=== PATIENT | male | born 1975 | race Caucasian/White ===

== ENCOUNTER 2018-01-10 14:01 | Emergency (ER) | payer OTHER ==
[2018-01-10 15:15] VITALS: BP 122/79
--- NOTE | 2018-01-10 15:32 | UC ---
UC General HPI - HPI Summary HPI Summary: abscess in L armpit drained 2 days ago. area not feeling better and is possible worse. +MRSA on culture. No hx DM. - History of Current Complaint Chief Complaint: UCSkin Stated Complaint: RECHECK-SKIN COMP Time Seen by Provider: 01/10/18 15:26 Hx Obtained From: Patient Pain Intensity: 6 Alleviating: nothing - Allergy/Home Medications Allergies/Adverse Reactions: Allergies Allergy/AdvReac Type Severity Reaction Status Date / Time Penicillins Allergy Hives Verified 01/10/18 15:06 PMH/Surg Hx/FS Hx/Imm Hx Cardiovascular History: Atrial Fibrillation - ablation but still on medications for now - Surgical History Surgical History: Yes Surgery Procedure, Year, and Place: jaw fxs, cardaic ablasion - Family History Known Family History: Positive: Hypertension, Non-Contributory - Social History Lives: With Family Alcohol Use: None Substance Use Type: None Smoking Status (MU): Current Every Day Smoker Type: Smokeless Tobacco Amount Used/How Often: 1 can/2 days Length of Time of Smoking/Using Tobacco: since age 28 - Immunization History Vaccination Up to Date: Yes Review of Systems All Other Systems Reviewed And Are Negative: Yes Constitutional: Positive: Negative Skin: Positive: Negative Eyes: Positive: Negative ENT: Positive: Negative Respiratory: Positive: Negative Cardiovascular: Positive: Negative Gastrointestinal: Positive: Negative Genitourinary: Positive: Negative Motor: Positive: Negative Neurovascular: Positive: Negative Musculoskeletal: Positive: Negative Neurological: Positive: Negative Psychological: Positive: Negative Physical Exam Triage Information Reviewed: Yes Appearance: Well-Appearing Vital Signs: Initial Vital Signs Temp 97.9 F 01/10/18 15:07 Pulse 81 01/10/18 15:07 Resp 16 01/10/18 15:07 BP 122/79 01/10/18 15:07 Pulse Ox 98 01/10/18 15:07 Vital Signs Reviewed: Yes Eyes: Positive: Conjunctiva Clear ENT: Positive: Normal ENT inspection Neck: Positive: Supple, Nontender, No Lymphadenopathy Respiratory: Positive: Lungs clear, Normal breath sounds Cardiovascular: Positive: RRR, No Murmur Abdomen Description: Positive: Nontender, No Organomegaly, Soft Bowel Sounds: Positive: Present Musculoskeletal: Positive: ROM Intact Neurological: Positive: Alert Psychological: Positive: Age Appropriate Behavior Skin Exam: Normal, Other - L axilla red. Prior area of I&D open, pink and not draining. Central with tiny opening and is draining puss. 2 more superior spots are fluctuant and yellow c/w abscesses. no streaking. satellite red spots. Course/Dx - Course Course Of Treatment: Procedure: time out. L axilla prep betadine. local with 1 % Lidocaine in 3 spots of concern. Tip #11 blade used to make superficial stabs to each site. small amounts of puss from 3 sites. irrigated with sterile NaCl to all 4 ( prior site included) sites. 1/4" gauze placed in all 4 sites. sites covered with Bacitracin and single bulky gauze sterile dressing. only scant bleeding. sterile technique used. pt tolerated well. on Bactrim and will continue, culture is MRSA + - Diagnoses Provider Diagnosis: Abscess of axilla Discharge - Sign-Out/Discharge Documenting (check all that apply): Patient Departure All imaging exams completed and their final reports reviewed: No Studies - Discharge Plan Condition: Stable Disposition: HOME Patient Education Materials: Abscess Follow-up (ED) Referrals: Mehrdad Flynn [Medical Doctor] - 2 Days Additional Instructions: CONTINUE THE BACTRIM DIRECTED. - Billing Disposition and Condition Condition: STABLE Disposition: Home - Attestation Statements Provider Attestation: I was available for consult. This patient was seen by the HIEU. The patient was not presented to, seen by, or examined by me. -Luigi
[2018-01-10] MEDS ORDERED: Lidocaine 1%* 5 ML VIAL INJ ONE (15:38)
== END 2018-01-10 16:20 | disposition home or self-care (01) ==
LOC: UCCORT 14:01
DX: L02.412 Cutaneous abscess of left axilla (principal); Z88.0 Allergy status to penicillin; I48.91 Unspecified atrial fibrillation; Z79.01 Long term (current) use of anticoagulants; F17.210 Nicotine dependence, cigarettes, uncomplicated; A49.02 Methicillin resistant Staphylococcus aureus infection, unspecified site
CPT/HCPCS: 10061; 99211; G0463

== ENCOUNTER 2018-02-03 13:07 | Emergency (ER) | payer OTHER ==
[2018-02-03 14:06] VITALS: BP 125/75
--- NOTE | 2018-02-03 14:17 | UC ---
General HPI - HPI Summary HPI Summary: "I think I have a groin pull". 2 days ago, while demonstrating a squat type move at his gym, pt got a sudden pain in his R groin. he has a hx of the same. at times the pain gets so bad it shoots into his leg. pt denies any testicular pain or swelling. self tx with tylenol. no relief. unable to take nsaids. - History of Current Complaint Chief Complaint: UCLowerExtremity Stated Complaint: GROIN PAIN Time Seen by Provider: 02/03/18 14:09 Hx Obtained From: Patient Onset/Duration: Sudden Onset Pain Intensity: 8 Aggravating: any type of leg movement Associated Signs & Symptoms: Positive: Other - no joint pain. Negative: Abdominal Pain - Allergy/Home Medications Allergies/Adverse Reactions: Allergies Allergy/AdvReac Type Severity Reaction Status Date / Time Penicillins Allergy Hives Verified 02/03/18 14:01 PMH/Surg Hx/FS Hx/Imm Hx - Additional Past Medical History Additional PMH: a-fib with ablation - Surgical History Surgical History: Yes Surgery Procedure, Year, and Place: jaw fxs, cardaic ablasion - Family History Known Family History: Positive: Hypertension, Non-Contributory - Social History Occupation: Employed Full-time Lives: With Family Alcohol Use: None Substance Use Type: None Smoking Status (MU): Current Every Day Smoker Type: Smokeless Tobacco Amount Used/How Often: 1 can/2 days Length of Time of Smoking/Using Tobacco: since age 28 - Immunization History Vaccination Up to Date: Yes Review of Systems All Other Systems Reviewed And Are Negative: Yes Constitutional: Positive: Negative Skin: Positive: Negative Eyes: Positive: Negative ENT: Positive: Negative Respiratory: Positive: Negative Cardiovascular: Positive: Negative Gastrointestinal: Positive: Negative Genitourinary: Positive: Negative Motor: Positive: Negative Neurovascular: Positive: Negative Musculoskeletal: Positive: Other: - R katrin pain Neurological: Positive: Negative Psychological: Positive: Negative Is Patient Immunocompromised?: No Physical Exam Triage Information Reviewed: Yes Appearance: Well-Appearing, Pain Distress - when walks Vital Signs: Initial Vital Signs Temp 97.8 F 02/03/18 14:02 Pulse 72 02/03/18 14:02 Resp 18 02/03/18 14:02 BP 125/75 02/03/18 14:02 Pulse Ox 99 02/03/18 14:02 Vital Signs Reviewed: Yes Eyes: Positive: Conjunctiva Clear ENT: Positive: Normal ENT inspection Neck: Positive: Supple, Nontender Respiratory: Positive: Lungs clear, Normal breath sounds Cardiovascular: Positive: RRR, No Murmur Abdomen Description: Positive: Nontender, No Organomegaly, Soft, Other: - Strong femoral pulses. No inguinal adenopathy or rash.. Negative: Distended, Guarding Bowel Sounds: Positive: Present Male Genital Exam: Positive: Normal Genitalia. Negative: No Hernia, Scrotum Tenderness (R), Scrotum Tenderness (L), Testicular Tenderness (R), Testicular Tenderness (L) Musculoskeletal: Positive: Other: - BLE's compared: no gross deformity, swelling or discoloration. Strong symmetrical pedal pulses. No calf pain or swelling x 2. R upper inner thigh mm's are very tender and any ROM reproduces and worsens his pain. pelvic girdle/hips are non tender to palpation Course/Dx - Differential Dx - Multi-Symptom Differential Diagnoses: Other - gu exam unremarkable, no concern for testicular torsion. strong symmetrical pulses, no concern for arterial occlusion/ insufficiency. no bony deformity or tendernsss thus no concern for fx. exam is c /w a mm strain. - Diagnoses Provider Diagnosis: Strain of groin Discharge - Sign-Out/Discharge Documenting (check all that apply): Patient Departure All imaging exams completed and their final reports reviewed: No Studies - Discharge Plan Condition: Critical Disposition: HOME Prescriptions: Hydrocodone/Acetaminophen [[place] 5-325 Tablet] 1 each PO Q6HR PRN #12 tablet MDD 4 PRN Reason: Pain Patient Education Materials: Groin Strain (ED) Referrals: [place] MD [Medical Doctor] - 5 Days Additional Instructions: SERENA R UPPER THIGH DURING DAY FOR COMFORT. REMOVE AT BEDTIME. - Billing Disposition and Condition Condition: CRITICAL Disposition: Home
== END 2018-02-03 14:54 | disposition home or self-care (01) ==
LOC: UCCORT 13:07
DX: S39.011A Strain of muscle, fascia and tendon of abdomen, initial encounter (principal); X50.0XXA Overexertion from strenuous movement or load, initial encounter; Y93.B9 Activity, other involving muscle strengthening exercises; Y92.89 Other specified places as the place of occurrence of the external cause; Z88.0 Allergy status to penicillin; F17.210 Nicotine dependence, cigarettes, uncomplicated
CPT/HCPCS: 99213; G0463